=== PATIENT | male | born 1985 | race American Indian/Alaskan Native ===

== ENCOUNTER 2017-02-23 16:14 | Emergency (ER) | payer OTHER ==
[~2017-02-23] VITALS: Ht 188 cm; Wt 90.7 kg
[2017-02-23 16:18] VITALS: BP 117/69
[2017-02-23] MEDS ORDERED: NKM (16:24)
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
[2017-02-23 17:17] LABS: APPEARANCE,URINE CLEAR; KETONES,URINE NEGATIVE (NEGATIVE); LEUKOCYTE ESTERASE ,URINE 1+ (NEGATIVE); NITRITE,URINE NEGATIVE (NEGATIVE); PH,URINE 5 (4.5-8.0); PROTEIN,URINE NEGATIVE (NEGATIVE); UROBILINOGEN,URINE NORMAL MG/DL (0.0-1.0)
[2017-02-23 17:30] LABS: BACTERIA,URINE FEW /HPF; RBC,URINE 0-2 /HPF (0 - 0); WBC,URINE 0-2 /HPF (0 - 0)
[2017-02-23 18:26] VITALS: BP 109/66
[2017-02-23] MEDS ORDERED: Norco 7.5mg/325mg tab ORAL ONE (19:00)
[2017-02-23 21:04] VITALS: BP 126/74
[2017-02-23 21:45] VITALS: BP 118/66
[2017-02-23] MEDS ORDERED: IBUPROFEN600 MG ORAL (22:09)
[2017-02-23 23:18] VITALS: BP 118/66
== END 2017-02-23 21:45 | disposition home or self-care (01) ==
LOC: EMR 19:18
DX: N50.811 Right testicular pain (principal); R19.00 Intra-abdominal and pelvic swelling, mass and lump, unspecified site
CPT/HCPCS: 76870; 81003; 99283

== ENCOUNTER 2017-12-26 16:37 | Emergency (ER) | payer OTHER ==
[~2017-12-26] VITALS: Ht 185.4 cm; Wt 95.7 kg
[~2017-12-26 16:37] MED LIST: IBUPROFEN600 MG ORAL; NKM
[2017-12-26] MEDS ORDERED: Dicyclomine HCl 10mg/5ml oral soln ORAL ONE (17:15)
[2017-12-26] MEDS ORDERED: Lidocaine 2% Visc 15ml soln ORAL ONE (17:15)
[2017-12-26] MEDS ORDERED: Mylanta II UD 30ml ORAL ONE (17:15)
[2017-12-26] MEDS ORDERED: Pantoprazole Inj IV ONE (17:15)
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
[2017-12-26 17:48] LABS: BASOPHILS % (AUTO) 2.5 % (0.0-2.0); EOSINOPHILS % (AUTO) 5.6 % (0.0-3.0); HEMATOCRIT 49.8 % (42.0-52.0); HEMOGLOBIN 16.3 G/DL (14.2-18.0); LYMPHOCYTES % (AUTO) 30.4 % (20.0-45.0); MEAN CORPUSCULAR VOLUME 86 FL (80-99); MONOCYTES % (AUTO) 9.7 % (1.0-10.0); NEUTROPHILS % (AUTO) 51.8 % (45.0-75.0); PLATELET COUNT 189 K/UL (150-450); RED CELL DISTRIBUTION WIDTH 12.3 % (11.6-14.8); WHITE BLOOD COUNT 6.2 K/UL (4.8-10.8)
[2017-12-26 17:53] LABS: APPEARANCE,URINE CLEAR; BILIRUBIN, URINE NEGATIVE (NEGATIVE); GLUCOSE, URINE (UA) NEGATIVE (NEGATIVE); KETONES,URINE NEGATIVE (NEGATIVE); LEUKOCYTE ESTERASE ,URINE 1+ (NEGATIVE); NITRITE,URINE NEGATIVE (NEGATIVE); PH,URINE 5 (4.5-8.0); PROTEIN,URINE NEGATIVE (NEGATIVE); UROBILINOGEN,URINE 1 MG/DL (0.0-1.0)
[2017-12-26 17:57] LABS: COLOR,URINE YELLOW
[2017-12-26 18:00] VITALS: BP 108/66
[2017-12-26 18:02] LABS: ANION GAP 7 mmol/L (5-15); BLOOD UREA NITROGEN 8 mg/dL (7-18); CALCIUM 8.9 MG/DL (8.5-10.1); CARBON DIOXIDE 28 MMOL/L (21-32); CHLORIDE 105 MMOL/L (98-107); CREATININE 1.2 MG/DL (0.55-1.30); POTASSIUM 4.2 MMOL/L (3.5-5.1); SODIUM 140 MMOL/L (136-145)
[2017-12-26] MEDS ORDERED: LANSOPRAZOLE30 MG ORAL (18:09)
[2017-12-26] MEDS ORDERED: DICYCLOMINE HCL10 MG PO (18:09)
[2017-12-26 18:12] LABS: ALANINE AMINOTRANSFERASE 24 U/L (12-78); ALBUMIN 3.6 G/DL (3.4-5.0); ALBUMIN/GLOBULIN RATIO 1.1 (1.0-2.7); ALKALINE PHOSPHATASE 60 U/L (46-116); ASPARTATE AMINO TRANSFERASE 15 U/L (15-37); BILIRUBIN,TOTAL 0.5 MG/DL (0.2-1.0)
--- NOTE | 2017-12-26 18:19 | Diagnostic Imaging Report ---
EXAM: XR Abdomen CLINICAL HISTORY: PAIN TECHNIQUE: Frontal view of the abdomen/pelvis with upright view of the abdomen. COMPARISON: No relevant prior studies available. FINDINGS/IMPRESSION: Upright views limited. On one of upright views presented, lateral right hemidiaphragm is clipped and on the additional upright view presented, the right upper hemidiaphragms clipped. Given these limitations, no subdiaphragmatic free air seen. There are some mildly distended small bowel segments. May represent ileus. There is still abundant gas and stool throughout the colon including to the level of rectum. Postop changes pelvis.
[2017-12-26 18:39] VITALS: BP 108/66
== END 2017-12-26 18:40 | disposition home or self-care (01) ==
LOC: EMR 17:08
DX: R10.11 Right upper quadrant pain (principal); R11.0 Nausea
CPT/HCPCS: 36415; 74019; 80053; 80329; 81003; 83690; 84484; 85025; 96374; 99284; C9113

== ENCOUNTER 2019-11-29 13:37 | Emergency (ER) | payer OTHER ==
[~2019-11-29] VITALS: Ht 188 cm; Wt 104.3 kg
[~2019-11-29 13:37] MED LIST changes: +DICYCLOMINE HCL10 MG PO; +LANSOPRAZOLE30 MG ORAL
--- NOTE | 2019-11-29 14:10 | NUR ---
ED Nurse Note: Pt walked in from home d/t laceration under left thumb. Pt fell in an alley and cut his hand open yesterday. VSS, on RA; afebrile on triage. will continue to monitor.
[2019-11-29] MEDS ORDERED: Tetanus/Diptheria/Pertussis IM ONE (14:15)
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
[2019-11-29 14:22] VITALS: BP 126/83
[2019-11-29 14:40] VITALS: BP 126/83
--- NOTE | 2019-11-29 14:40 | NUR ---
ER DISCHARGE NOTE: Patient is cleared to be discharged per ERMD, pt is aox4, on room air, with stable vital signs. pt was given dc and prescription instructions, pt was able to verbalize understanding, pt id band removed. pt is able to ambulate with steady gait. pt took all belongings.
== END 2019-11-29 14:40 | disposition home or self-care (01) ==
LOC: EMR 14:14
DX: S61.012A Laceration without foreign body of left thumb without damage to nail, initial encounter (principal); Z23 Encounter for immunization; W19.XXXA Unspecified fall, initial encounter; Y92.9 Unspecified place or not applicable
CPT/HCPCS: 12001; 90471; 90715; Z7502; 99283

== ENCOUNTER 2020-02-21 22:08 | Emergency (ER) | payer OTHER ==
[~2020-02-21] VITALS: Ht 188 cm; Wt 95.3 kg
[2020-02-21 22:30] VITALS: BP 120/84
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
[2020-02-21 23:25] VITALS: BP 118/89
--- NOTE | 2020-02-22 15:38 | Diagnostic Imaging Report ---
Indication: Pain, trauma Technique: 2 views of the right tibia and fibula Comparison: none Findings: No acute fractures. No dislocations. The joint spaces are preserved Impression: Negative
== END 2020-02-21 23:25 | disposition home or self-care (01) ==
LOC: EMR 23:21
DX: S80.11XA Contusion of right lower leg, initial encounter (principal); V29.9XXA Motorcycle rider (driver) (passenger) injured in unspecified traffic accident, initial encounter; Y92.9 Unspecified place or not applicable
CPT/HCPCS: 73590; Z7502; 99283

== ENCOUNTER 2020-04-06 18:37 | Emergency (ER) | payer OTHER ==
[~2020-04-06] VITALS: Ht 188 cm; Wt 95.3 kg
[2020-04-06] MEDS ORDERED: XARELTO10 MG ORAL (18:48)
--- NOTE | 2020-04-06 19:14 | Emergency Room Report ---
History of Present Illness General Chief Complaint: Lower Extremity Injury Present Illness HPI 35-year-old male presents to the emergency department complaining of 10 out of 10 severity pain to the bottom of his right foot x1 week. Patient reports 1 week ago he stepped on a nail that was in the carpet. He states he was walking barefoot. Patient states he was not seen for his injury. Patient reports pain is progressed up the leg. He reports swelling. He denies fevers or chills. Patient is not sure when he received his last tetanus vaccine however review of his chart shows he just received 1 here this year in November. He denies bleeding at this time. He reports his pain is exacerbated with palpation and bearing weight. No other aggravating or relieving factors. 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 COVID-19 Screening: Negative COVID-19 COVID-19 Testing Source: nasal Patient History Past Medical History: see triage record Past Surgical History: none Pertinent Family History: none Reviewed Nursing Documentation: PMH: Agreed; PSxH: Agreed Nursing Documentation-PMH Hx Diabetes: No Hx Cancer: No - rt hip surgery 2005 Hx Gastrointestinal Problems: Yes - Abdominal surgery after trauma (age 13) Review of Systems All Other Systems: negative except mentioned in HPI Physical Exam Vital Signs Date Time Temp Pulse Resp B/P (MAP) Pulse Ox O2 Delivery O2 Flow Rate FiO2 04/06/20 18:40 97.5 83 17 126/84 (98) 99 Room Air Sp02 EP Interpretation: reviewed, normal General Appearance: no apparent distress, alert, GCS 15, non-toxic Head: normocephalic, atraumatic Eyes: bilateral eye normal inspection, bilateral eye PERRL ENT: hearing grossly normal, normal voice Neck: full range of motion Respiratory: lungs clear, normal breath sounds, speaking full sentences Cardiovascular #1: regular rate, rhythm, no edema, normal capillary refill Musculoskeletal: normal range of motion, gait/station normal, tender - distal ball of the right foot. No bony ttp. Neurologic: alert, motor strength/tone normal, oriented x3, sensory intact, responsive, speech normal Psychiatric: judgement/insight normal Skin: other - healed puncture wound, that is not appreciably visible. some erythema to the bottom of the right foot, no progression in the ankle or calf. area of interest is at the ball of the right foot where there is hyperkeratosis /callous noted. Medical Decision Making PA Attestation Dr. Redman is my supervising Physician whom patient management has been discussed with. Diagnostic Impression: Primary Impression: Puncture wound ER Course 35-year-old male presents to the emergency department complaining of 10 out of 10 severity pain to the bottom of his right foot x1 week. Patient reports 1 week ago he stepped on a nail that was in the carpet. He states he was walking barefoot. Patient states he was not seen for his injury. Patient reports pain is progressed up the leg. He reports swelling. He denies fevers or chills. Patient is not sure when he received his last tetanus vaccine however review of his chart shows he just received 1 here this year in November. He denies bleeding at this time. He reports his pain is exacerbated with palpation and bearing weight. No other aggravating or relieving factors. Ddx considered but are not limited to laceration, tendon injury, cellulitis, amputation. Vital signs: are WNL, pt. is afebrile H&PE are most consistent with: healed puncture wound, that is not appreciably visible. some erythema to the bottom of the right foot, no progression in the ankle or calf. area of interest is at the ball of the right foot where there is hyperkeratosis /callous noted. ORDERS: none required at this time, the diagnosis is clinical ED INTERVENTIONS: - d/w pt. tdap was given november of this year. NO significant evidence of infection. -I do not identify an emergent condition at this time. With current presentation, pt. is stable for close outpatient follow up and conservative treatment. D/w pt. to return promptly to ED with worsening or new symptoms.- Pt. verbalizes' understanding and agreement with proposed treatment plan.proposed treatment plan. DISCHARGE: At this time pt. is stable for d/c to home. Will provide printed patient care instructions, and any necessary prescriptions. Care plan and follow up instructions have been discussed with the patient prior to discharge. Last Vital Signs Date Time Temp Pulse Resp B/P (MAP) Pulse Ox O2 Delivery O2 Flow Rate FiO2 9/24/20 18:40 97.5 83 17 126/84 (98) 99 Room Air Disposition: HOME, SELF-CARE Condition: Stable Patient Instructions: Puncture Wound, [id number] Additional Instructions: ~ ~ An emergent medical condition has not been identified based on this patients presentation, exam and any necessary testing/imaging. The patient is determined to be stable for outpatient follow-up and management of symptoms by a primary care provider. Take medications as directed. You have already received tetanus vaccination this past November 2019. Follow up with a Primary Care Provider in 3-5 days, even if your symptoms have resolved. --Please review list of primary care clinics, if you do not already have a primary care provider Return sooner to ED if new symptoms occur, or current symptoms become worse. - Please note that this Emergency Department Report was dictated using [employer]pilot manager technology software, occasionally this can lead to erroneous entry secondary to interpretation by the dictation equipment. Madeleine Lora Apr 06, 2020 19:14
[2020-04-06] MEDS ORDERED: CEPHALEXIN500 MG ORAL (19:18)
[2020-04-06] MEDS ORDERED: TYLENOL EXTRA500 MG ORAL (19:23)
[2020-04-06 19:27] VITALS: BP 124/76
== END 2020-04-06 19:27 | disposition home or self-care (01) ==
LOC: EMR 19:03
DX: S91.331A Puncture wound without foreign body, right foot, initial encounter (principal); W22.8XXA Striking against or struck by other objects, initial encounter; Y92.9 Unspecified place or not applicable
CPT/HCPCS: 99281